=== PATIENT | female | born 1960 | race Caucasian/White ===

== ENCOUNTER → 2016-05-27 | Outpatient (CLI) | payer BC ==
[~2016-05-27] MED LIST: CHOL1CAP51 PO; MULTTAB58 PO; SERT-234 PO
--- NOTE | 2016-05-27 15:35 | MAMMOGRAPHY REPORT ---
BILATERAL DIGITAL SCREENING MAMMOGRAM TOMOSYNTHESIS WITH CAD: 05/27/2016 CLINICAL HISTORY: Routine screening. Patient has no complaints. TECHNIQUE: Breast tomosynthesis in addition to standard 2D mammography was performed. Current study was also evaluated with a Computer Aided Detection (CAD) system. COMPARISON: Comparison is made to exams dated: 03/28/2015 mammogram, 03/21/2014 mammogram, 02/29/20 14 mammogram, 02/14/2013 mammogram, 12/28/2011 mammogram, and 11/18/2010 mammogram - [facility]. BREAST COMPOSITION: The tissue of both breasts is extremely dense, which lowers the sensitivity of mammography. FINDINGS: No suspicious masses, calcifications, or areas of architectural distortion are noted in e ither breast. There has been no significant interval change compared to prior exams. Bilateral hemal gn-appearing calcifications are not significantly changed. IMPRESSION: ACR BI-RADS CATEGORY 2: BENIGN There is no mammographic evidence of malignancy. A 1 year screening mammogram is recommended. The p atient will receive written notification of the results. Approximately 10% of breast cancers are not detected with mammography. A negative mammographic repor t should not delay biopsy if a clinically suggestive mass is present. Ashwini Zazueta M.D. /:05/27/2016 15:23:55 Veterinary Receptionist: Shawnee GUILLEN)(Estela)(BD), [facility] letter sent: Normal 1/2 BI-RADS Code: ACR BI-RADS Category 2: Benign
== END | disposition home or self-care (01) ==
LOC: C.MAMM 12:15
PROVIDERS: ATTEND Obstetrics & Gynecology
DX: Z12.31 Encounter for screening mammogram for malignant neoplasm of breast (principal)

== ENCOUNTER → 2016-06-09 | Outpatient (CLI) | payer BC | END | disposition home or self-care (01) | LOC: C.PAPS 14:20 | PROVIDERS: ATTEND Obstetrics & Gynecology | DX: Z01.419 Encounter for gynecological examination (general) (routine) without abnormal findings (principal) ==

== ENCOUNTER → 2016-07-29 | Outpatient (CLI) | payer BC ==
--- NOTE | 2016-07-29 09:51 | DIAGNOSTIC IMAGING REPORT ---
RIGHT RIBS UNILATERAL WITH PA CHEST CLINICAL HISTORY: RIGHT RIB PAIN Right COMPARISON STUDY: Chest 12/25/2014. FINDINGS: The lungs are clear. The heart is normal in size. No pleural effusions. No pneumothorax. No acute rib fractures. Stable distal resorption/resection of the right clavicle. IMPRESSION: No acute rib fractures. No pneumothorax. Electronically signed by: Dung Matt M.D. 07/29/2016 9:50 AM Dictated Date/Time: 07/29/2016 9:40 AM
== END | disposition home or self-care (01) ==
LOC: C.RAD1850 09:09
PROVIDERS: ATTEND Family Medicine
DX: R22.2 Localized swelling, mass and lump, trunk (principal)

== ENCOUNTER → 2016-08-05 | Outpatient (CLI) | payer BC ==
--- NOTE | 2016-08-05 13:37 | DIAGNOSTIC IMAGING REPORT ---
CHEST ULTRASONOGRAPHY CLINICAL HISTORY: Chest wall mass COMPARISON STUDY: No previous studies for comparison. FINDINGS: No pathologic masses are visualized. The palpable abnormality appears to correlate with costochondral cartilage. Clinical follow-up is advocated. If a clinically suspicious abnormality is repalpated, additional imaging such as a CT scan could be obtained. IMPRESSION: No pathologic masses are visualized ultrasonographically. Electronically signed by: Israel Hardin M.D. 08/05/2016 1:36 PM Dictated Date/Time: 08/05/2016 1:35 PM
== END | disposition home or self-care (01) ==
LOC: C.ULTR 13:06
PROVIDERS: ATTEND Family Medicine
DX: R22.2 Localized swelling, mass and lump, trunk (principal)

== ENCOUNTER → 2017-05-31 | Outpatient (CLI) | payer BC ==
--- NOTE | 2017-06-01 15:41 | MAMMOGRAPHY REPORT ---
BILATERAL DIGITAL SCREENING MAMMOGRAM TOMOSYNTHESIS WITH CAD: 05/31/2017 CLINICAL HISTORY: Routine screening. TECHNIQUE: Breast tomosynthesis in addition to standard 2D mammography was performed. Current study was also evaluated with a Computer Aided Detection (CAD) system. COMPARISON: Comparison is made to exams dated: 05/27/2016 mammogram, 03/28/2015 mammogram, 02/28/2014 mammogram, 02/14/2013 mammogram, 12/28/2011 mammogram, and 11/18/2010 mammogram - [facility]. BREAST COMPOSITION: The tissue of both breasts is extremely dense, which lowers the sensitivity of m ammography. FINDINGS: The parenchymal pattern is unchanged. No developing mass, architectural distortion or clus ter of suspicious microcalcifications is seen in either breast. IMPRESSION: ACR BI-RADS CATEGORY 2: BENIGN There is no mammographic evidence of malignancy. A 1 year screening mammogram is recommended. The pa tient will receive written notification of the results. Approximately 10% of breast cancers are not detected with mammography. A negative mammographic report should not delay biopsy if a clinically suggestive mass is present. Melodie Frye M.D. ay/:05/31/2017 16:18:49 [place] Burner Operator: Shwetha DAMICO(R)(M), [facility] letter sent: Normal 1/2 BI-RADS Code: ACR BI-RADS Category 2: Benign
== END | disposition home or self-care (01) ==
LOC: C.MAMM 12:05
PROVIDERS: ATTEND Obstetrics & Gynecology
DX: Z12.31 Encounter for screening mammogram for malignant neoplasm of breast (principal)

== ENCOUNTER → 2017-06-23 | Outpatient (CLI) | payer BC | END | disposition home or self-care (01) | LOC: C.PAPS 14:13 | PROVIDERS: ATTEND Obstetrics & Gynecology | DX: Z01.419 Encounter for gynecological examination (general) (routine) without abnormal findings (principal) ==

== ENCOUNTER 2019-02-06 06:10 | Inpatient (IN) ==
--- NOTE | 2019-01-30 13:08 | Anesthesiology Consultation ---
Date of Service January 30, 2019 History Surgery Operation Date: 02/06/19 13:10 Proposed Procedures p Robotic Laparoscopic Excision of Perinephric Retroperitoneal Mass, - Salomón Frye MD s Cystoscopy, Right Ureteral Stent - Salomón Frye MD Height/Weight Height: 5 ft 3 in Weight: 46.72 kg Allergies Allergy/AdvReac Type Severity Reaction Status Date / Time epinephrine Allergy Unknown "heart Verified 01/30/19 13:08 goes really crazy" tetanus toxoid, adsorbed Allergy Unknown swelling Verified 01/30/19 13:08 at injection site diphenhydramine AdvReac Unknown heart Verified 01/30/19 13:08 racing Medications Home Medications Medication Instructions Recorded Confirmed Last Taken clonazepam [Klonopin] 0.5 mg PO UD PRN 01/30/19 01/30/19 Unknown multivitamin 1 tab PO QAM 01/30/19 01/30/19 Unknown sertraline [Zoloft] 100 mg PO QAM 01/30/19 01/30/19 Unknown Past Medical History Medical History Anxiety Heart palpitations saw Dr. Jameson several years ago for workup. reports diagnosed with some type cardiac abnormality but told not a cause for concern and did not need to continue to follow w/ cardio -- unable to recall specific dx. Hydronephrosis IBS (irritable bowel syndrome) Osteopenia Retroperitoneal mass Temporomandibular joint click Past Surgical History Surgical History H/O arthroscopy of shoulder Rt Status post lateral meniscus repair Rt History of anesthesia reaction Tachycardia History of biopsy Retroperitoneal mass - benign History of colonoscopy History of dacryocystorhinostomy BL History of esophagogastroduodenoscopy (EGD) History of tooth extraction Social History Smoking Status: Never smoker Do You Dip or Chew Tobacco: No Hx Alcohol Use: Yes Alcohol type: wine alcohol intake frequency: a few times a month Hx Substance Use: No substance use type: does not use
--- NOTE | 2019-01-30 13:10 | PAT Medication Instructions ---
Medication Instructions Date of Service January 30, 2019 Home Medications clonazepam [Klonopin] 0.5 mg PO UD PRN multivitamin 1 tab PO QAM sertraline [Zoloft] 100 mg PO QAM DO NOT take the morning of surgery multivitamin 1 tab PO QAM Take morning of surgery With a small sip of water, OTHERWISE NOTHING TO EAT OR DRINK AFTER MIDNIGHT: clonazepam [Klonopin] 0.5 mg PO UD PRN (if needed) sertraline [Zoloft] 100 mg PO QAM Other Notes If you have any questions please call us at [phone] or [phone] or [phone] or [phone]
--- NOTE | 2019-01-31 08:49 | Anesthesiology Consultation ---
Date of Service January 31, 2019 Assessment & Plan (1) Encounter for pre-operative examination: - Cardiac hx: Past anesthesia reaction and preop EKG reviewed with Dr. Mercado. He does not feel EKG significantly changed from prior 2013 [facility] EKG and that no further cardiac evaluation/testing needed prior to surgery from his perspective. - Past anesthesia/surgery reaction: Patient reports tachycardia perioperatively with multiple surgeries. Most recent surgery: right knee scope: 07/09/14 at [facility]-- LMA#4. No perioperative tachycardia but: Was called to PACU for pt unresponsive with decreased respirations and SaO2 88%. Pt had been somnolent with oral airway in place on arrival to PACU. Provided assisted respirations with BVM 100% O2 without difficulty. SaO2 improved and pt subsequently awakened. Oral airway was removed and had no further respiratory difficulty. Later during PACU stay, pt developed SVT with heart rate 140/min. Was fully awake and responsive at that time, pain-free, with normal blood pressure. Metoprolol 2.5mg was given with satisfactory fall in heart rate to 80's. No further problems ensued and pt was discharged in satisfactory condition." Chart Review Chart Review: Pending: Refer to Additional Notes / Consult section (pending preop testing (labs, EKG, CXR)) and Patient seen in Pre Admission Testing Teaching & Discussion Pre-Anesthesia Teaching/Discussion Notes: Instructed NPO after midnight before surgery,except medications with 15 cc of water. Medication instructions provided according to the PAT guidelines. History Surgery Operation Date: 02/06/19 13:10 Proposed Procedures p Robotic Laparoscopic Excision of Perinephric Retroperitoneal Mass, - Salomón Frye MD s Cystoscopy, Right Ureteral Stent - Salomón Frye MD Height/Weight Height: 5 ft 3 in Weight: 47.3 kg Allergies Allergy/AdvReac Type Severity Reaction Status Date / Time epinephrine Allergy Unknown "heart Verified 01/30/19 13:08 goes really crazy" tetanus toxoid, adsorbed Allergy Unknown swelling Verified 01/30/19 13:08 at injection site diphenhydramine AdvReac Unknown heart Verified 01/30/19 13:08 racing Medications Home Medications Medication Instructions Recorded Confirmed Last Taken clonazepam [Klonopin] 0.5 mg PO UD PRN 01/30/19 01/30/19 Unknown multivitamin 1 tab PO QAM 01/30/19 01/30/19 Unknown sertraline [Zoloft] 100 mg PO QAM 01/30/19 01/30/19 Unknown Past Medical History Medical History Anxiety Heart palpitations hx SVT per records; patient s/p cardiac evaluation/workup "several years ago" and told "not a cause for concern and did not need to continue to follow w/ cardio" Hydronephrosis IBS (irritable bowel syndrome) Osteopenia Retroperitoneal mass Temporomandibular joint click Exercise / Class Metabolic Activity II 4-5 Yardwork/Stairs/Walk up hill Past Surgical History Surgical History H/O arthroscopy of shoulder Rt Status post lateral meniscus repair Rt History of biopsy Retroperitoneal mass - benign History of colonoscopy History of dacryocystorhinostomy BL History of esophagogastroduodenoscopy (EGD) History of tooth extraction Past Anesthesia History No Family Hx of Anesthesia Complications and Other Patient reports tachycardia perioperatively with multiple surgeries. Most recent surgery: right knee scope: 07/09/14 at [facility]-- LMA#4. No perioperative tachycardia but: Was called to PACU for pt unresponsive with decreased respirations and SaO2 88%. Pt had been somnolent with oral airway in place on arrival to PACU. Provided assisted respirations with BVM 100% O2 without difficulty. SaO2 improved and pt subsequently awakened. Oral airway was removed and had no further respiratory difficulty. Later during PACU stay, pt developed SVT with heart rate 140/min. Was fully awake and responsive at that time, pain-free, with normal blood pressure. Metoprolol 2.5mg was given with satisfactory fall in heart rate to 80's. No further problems ensued and pt was discharged in satisfactory condition." History of PONV No Hx of PONV and No Hx of Motion Sickness Social History Smoking Status: Never smoker Do You Dip or Chew Tobacco: No Hx Alcohol Use: Yes Alcohol type: wine alcohol intake frequency: a few times a month Hx Substance Use: No substance use type: does not use Review of Systems Patient denies chest pain, shortness of breath, reflux, cough, wheezing, palpitations. Physical Exam Vital Signs VITALS BP 107/70 P 72 TEMP 97.6 SP02 100%RA RESP 16 PHYSICAL Full neck and c-spine range of motion. Full TMJ range of motion. TMD 3.5 finger breaths Mallampati Score 2 Dentition: missing side, crowns on sides Lungs: clear throughout to auscultation Cardiac: regular rate and rhythm, no murmurs noted Spine: normal Carotid arteries: negative bruit Extremities: no edema Testing Laboratory Results 01/10/19 PT 10.6 PTT 29.2 INR 1.0
--- NOTE | 2019-01-31 10:15 | XRay Report ---
TWO VIEW CHEST CLINICAL HISTORY: Preoperative examination. FINDINGS: PA and lateral chest radiographs are compared to study dated 07/29/2016. The cardiomediastin al silhouette is unremarkable. The lungs and pleural spaces are clear. Apical scarring is noted. The re is no pneumothorax. The bony thorax appears intact. IMPRESSION: No active disease in the chest. Electronically signed by: Magnus Dennis M.D. 01/31/2019 10:14 AM
[2019-01-31 12:15] LABS: Basophils # (auto) 0.02 K/uL (0-0.2); Basophils % (auto) 0.3 %; Eosinophils # (auto) 0.09 K/uL (0-0.5); Eosinophils % (auto) 1.3 %; Hematocrit (blood only) 38.2 % (37-47); Hemoglobin 12.6 g/dL (12.0-16.0); Immature Granulocytes # (auto) 0.01 K/uL (0.00-0.02); Immature Granulocytes % (auto) 0.1 %; Lymphocytes # (auto) 1.47 K/uL (1.2-3.4); Lymphocytes % (auto) 20.4 %; Mean Corpuscular Hemoglobin 29.7 pg (25-34); Mean Corpuscular Volume 90.1 fL (80-100); Mean Platelet Volume 9.5 fL (7.4-10.4); Monocytes # (auto) 0.65 K/uL (0.11-0.59); Neutrophils # (auto) 4.95 K/uL (1.4-6.5); Neutrophils % (auto) 68.9 %; Platelet Count 288 K/uL (130-400); RDW Coefficient of Variation 12.7 % (11.5-14.5); RDW Standard Deviation 41.7 fL (36.4-46.3); Red Blood Count 4.24 M/uL (4.2-5.4); White Blood Count 7.19 K/uL (4.8-10.8)
[2019-01-31 12:24] LABS: BUN Creatinine Ratio 16.4 (10-20); Calcium 9.4 mg/dl (8.5-10.1); Creatinine Clr Calc Pharmacy 48.4 ml/min; Est GFR (African American) 75.7; Est GFR (Non-African American) 65.3; Potassium 3.8 mmol/L (3.5-5.1)
[2019-01-31 12:38] LABS: Appearance Urine Cloudy (Clear); Bacteria Urine Automated Negative (Negative); Bilirubin Urine Negative (Negative); Blood Urine Trace (Negative); Color Urine Yellow; Glucose Urine UA Negative (Negative); Ketones Urine Negative (Negative); Leukocyte Esterase Urine Trace (Negative); Nitrite Urine Negative (Negative); Protein Urine Negative (Negative); Specific Gravity Urine 1.023 (1.000-1.030); Urobilinogen Urine Negative (Negative); pH Urine 7.5 (4.5-7.5)
[~2019-02-06 06:10] MED LIST changes: +CEFAZOLIN 2000MG 2,000 MG/15 ML SYR IV SCH; -CHOL1CAP51 PO; +HEPARIN SOD 5,000 UNIT/0.5 ML VIAL SQ SCH; +LR 15ML/HR IV SCH; -MULTTAB58 PO; -SERT-234 PO
[2019-02-06] MEDS ORDERED: SCOPOLAMINE 1.5 MG TDSY TD ONE ×2 (07:01→07:06)
[2019-02-06] MEDS ORDERED: ePHEDrine sulfate 50 MG/ML AMP IV PRN (07:01)
[2019-02-06] MEDS ORDERED: fentaNYL citrate 100 MCG/2 ML VIAL IV PRN (07:01)
[2019-02-06] MEDS ORDERED: SCOPOLAMINE 1.5 MG TDSY ONE (07:01)
[2019-02-06] MEDS ORDERED: ATROPINE SULFATE 0.1 MG/ML 10ML SYR IV PRN (07:01)
[2019-02-06] MEDS ORDERED: ONDANSETRON INJ 2 MG/ML 2 ML VIAL IV PRN ×2 (07:01→13:36)
[2019-02-06] MEDS ORDERED: BUPIVACAINE 0.5 % 5 MG/1 ML MPF 30ML VIAL ONE (07:11)
[2019-02-06] MEDS ORDERED: MIDAZOLAM HCL 1 MG/ML 2ML VIAL ONE (07:15)
[2019-02-06] MEDS ORDERED: fentaNYL citrate 100 MCG/2 ML VIAL ONE (07:15)
--- NOTE | 2019-02-06 07:24 | History & Physical Bridge Note ---
Date of Service February 06, 2019 History & Physical Bridge Note I have examined the patient, reviewed the History & Physical and in the interval since the performance of the History & Physical I have noted the following changes of clinical significance: no changes noted
[2019-02-06] MEDS ORDERED: CHECK SCOPOLAMINE PATCH PLACEMENT SCH (08:00)
[2019-02-06] MEDS ORDERED: NEOSTIGMINE METHYLSULFATE 5 MG/5 ML SYR ONE (08:20)
[2019-02-06] MEDS ORDERED: ONDANSETRON INJ 2 MG/ML 2 ML VIAL ONE ×2 (08:20→08:54)
[2019-02-06] MEDS ORDERED: LIDOCAINE HCL 2% 2 ML VIAL/AMP(20MG/ML) INFIL ONE (08:20)
[2019-02-06] MEDS ORDERED: ePHEDrine sulfate 50 MG/ML SYR ONE (08:20)
[2019-02-06] MEDS ORDERED: DEXAMETHASONE SOD INJ 4 MG/ML VIAL ONE (08:20)
[2019-02-06] MEDS ORDERED: GLYCOPYRROLATE 0.2 MG/ML VIAL ONE (08:20)
[2019-02-06] MEDS ORDERED: PROPOFOL IV EMULSION 10 MG/ML 20 ML VIAL IV ONE (08:20)
[2019-02-06] MEDS ORDERED: ROCURONIUM BROMIDE 10 MG/ML 5 ML VIAL ONE ×2 (08:20→10:46)
[2019-02-06] MEDS ORDERED: HYDROmorphone INJ 2 MG/ML SYR/VIAL ONE (08:52)
[2019-02-06] MEDS ORDERED: FLOSEAL HEMOSTATIC MATRIX 10ML TOP ONE (10:40)
[2019-02-06] MEDS ORDERED: PHENYLEPHRINE 100MCG/ML 5ML SYR ONE (10:49)
--- NOTE | 2019-02-06 11:04 | Operative Report ---
PG Post Operative Report Pre & Post Diagnosis Operation Date: 02/06/19 09:20 Pre-Op Diagnosis: Right Leiomyoma Post-Op Diagnosis: Right Leiomyoma Procedure Operation Date: 02/06/19 09:20 Actual Procedures p Attempted Robotic Laparoscopic Excision of Right Perinephric Retroperitoneal Mass,(Right) - Salomón Frye MD s Cystoscopy, Right Ureteral Stent(Right) - Salomón Frye MD extended right hemicolectomy-Farooq Lord D.O. Surgeon Farooq Lord, DO Chaparro Frye M.D. Casting Machine Control Board Operator Johnnie Taylor pa-c Estimated Blood Loss 25 Findings Consistent with Post-Op Diagnosis Specimens terminal ileum,cecum,right colon,portion of transverse colon Description of Procedure Please see Dr. Frye's operative note for a full report. I was called into the room mid procedure. The patient was placed in a slightly left lateral decubitus position with a laparotomy incision already performed and Bookwalter had been placed. The right ureter, portion of kidney and portion of right colon was already mobilized. There was concern about the mass extending into the mesentery of the right colon. At this point I scrubbed into the case. The final pathology of the mass is in question with concern for possibly having a component of sarcoma. We attempted to dissect the kidney off of the mesentery of the right colon but at the same time wanted to obtain adequate margins. We continued use traction countertraction, small amounts of cautery, as well as clamp cut and tie to take down the blood supply to the mass and kidney. We were able to bluntly dissect the duodenum away from the mass. We tediously continued to dissect around the entire right kidney until we had it fully excised. After we passed this off to be sent to pathology it was obvious that we had made a rent in a several inch portion of the right mesentery. Because of this as well as the consideration of possible erosion of the mass into the mesentery of the right colon I made the decision to perform a right hemicolectomy. The patient had already been bowel prepped preoperatively. There was some mild ischemia to the cecum as well which concerned me as well as obtaining adequate margins. At this point we transected the terminal ileum using a SALVADOR brown cartridge linear stapler. We then made a small window in the mesentery of the transverse colon just proximal to the middle colic vessels and transected this using a brown cartridge stapler as well. The mesentery was primarily already freed up as was the hepatic flexure. We used a LigaSure device to take down the mesentery of the cecum right colon and portion of transverse colon. We sent the entire specimen off to be sent to pathology. We then performed a side to side ileotransverse anastomosis again with a brown cartridge SALVADOR stapler. The common enterotomy was closed using a TA 60 stapling device. 3-[address] a crotch stitch. I used 2-0 Vicryl to close the mesenteric defect. The anastomosis was widely patent pink and viable. We thoroughly irrigated the wound. There was adequate hemostasis. Please see Dr. Frye's report for the closure. At this point I scrubbed out of the case. I attest to the content of the Intraoperative Record and any orders documented therein. Any exceptions are noted below.
[2019-02-06] MEDS ORDERED: NALOXONE HCL 0.4 MG/1 ML VIAL/CARP ONE (11:38)
[2019-02-06 11:58] LABS: Basophils # (auto) 0.01 K/uL (0-0.2); Basophils % (auto) 0.1 %; Hematocrit (blood only) 36.3 % (37-47); Hemoglobin 12.1 g/dL (12.0-16.0); Immature Granulocytes # (auto) 0.02 K/uL (0.00-0.02); Immature Granulocytes % (auto) 0.1 %; Lymphocytes # (auto) 0.91 K/uL (1.2-3.4); Lymphocytes % (auto) 6.5 %; Mean Corpuscular Hemoglobin 30.3 pg (25-34); Mean Corpuscular Volume 90.8 fL (80-100); Mean Platelet Volume 8.8 fL (7.4-10.4); Monocytes # (auto) 0.19 K/uL (0.11-0.59); Monocytes % (auto) 1.4 %; Neutrophils # (auto) 12.88 K/uL (1.4-6.5); Neutrophils % (auto) 91.9 %; Platelet Count 270 K/uL (130-400); RDW Coefficient of Variation 12.3 % (11.5-14.5); RDW Standard Deviation 40.9 fL (36.4-46.3); White Blood Count 14.01 K/uL (4.8-10.8)
[2019-02-06 12:03] LABS: Mean Corpuscular Hgb Conc 33.3 g/dL (32-36)
--- NOTE | 2019-02-06 12:08 | Operative Report ---
PG Post Operative Report Pre & Post Diagnosis Operation Date: 02/06/19 09:20 Pre-Op Diagnosis: Right Leiomyoma Post-Op Diagnosis: Right Leiomyoma Procedure Operation Date: 02/06/19 09:20 Actual Procedures p Diagnostic Laparoscopy Excision of Retroperitoneal Mass,Partial colectomy,with appendectomy(Right) - Salomón Frye MD s Cystoscopy, Right Ureteral Stent(Right) - Salomón Frye MD Surgeon Chaparro Frye MD Backhoe Operator Johnnie Taylor pa-c Estimated Blood Loss 200 Findings Consistent with Post-Op Diagnosis Specimens 1. Retroperitoneal mass5 cores for frozen analysisinterpreted as leiomyoma with atypia, cannot rule out sarcoma 2. Retroperitoneal mass 3. Right colon with appendix and terminal ileum Description of Procedure Of note, this is a healthy 58-year-old female with a recently discovered right retroperitoneal mass. FNA and core biopsies were previously performed with interpretation of the mass as leiomyoma with some atypia. Insufficient abnormalities to justify diagnosis of sarcoma however this certainly remains the primary item on the differential. With these risks in mind, we approach the velázquez rgery with the anticipation of treating it as a sarcoma in the area on the side of caution in regard to margins and resection of adjacent structures. Description of the case: The patient was identified in the preoperative holding area, appropriate informed consents reviewed and completed and the patient was transported to the operating suite. Upon arrival she received appropriate preoperative antibiotics in the form of Ancef. To begin the case, she was placed in dorsal lithotomy position and sterilely prepped and draped in standard fashion. I began by passing a 22 Israeli cystoscope with 30 degree lens. Inspection revealed a slightly tight urethral meatus which was dilated with the scope and obturator. Inspection of the bladder revealed no mucosal abnormalities. Right and left ureteral orifices were in orthotopic position. I turned my attention to the right ureteral orifice and cannulated with a sensor wire and a 5 Israeli open- ended catheter. Both advanced to the level of the kidney without difficulty. I then withdrew the 5 Israeli open-ended catheter and placed a 6 x 24 cm double-J ureteral stent leaving a string attached to the distal end. Seeing a good curl in the bladder, I concluded this portion of the case and placed a Del Valle catheter. The string was attached to the catheter in the patient is undraped. She was subsequently placed in the left side down right side up lazy lateral position with the bed slightly flexed. She underwent sterile prep and drape standard fashion. To begin the abdominal portion of the case, a Veress needle was passed per umbilicus and abdomen insufflated to 15 mmHg. An infraumbilical port was placed with a 12 mm Visiport and 10 mm 0 degree lens. Inspection revealed no adhesions. There is no veress trauma. Initial inspection revealed a very large mass in the right lateral aspect of the abdomen. Initial inspection limited believe that we could perform this as a laparoscopic surgery, I placed 2 additional ports in anticipation of this. By Dr. gerri rodriguez and attempted to look with a 30 degree lens over the top of the mass. Unfortunately, her colon, as depicted and imaging was draped in the extreme lateral side of this mass and this mass was protruding essentially from her posterior aspect of her abdomen to her anterior. It created an obstruction which I did not feel safe working around. I attempted to re-work the ports to see if I could achieve a better angle, but her small stature in size clearly made laparoscopy inferior to an open surgery in my opinion. I subsequently undocked the robot withdrew the laparoscopic ports and made a Escamilla style incision over top of the mass in the right lower quadrant. Carried this dissection through the superficial musculature until I entered the peritoneum. At that time the mass was readily visible with the colon draped over top including the mesentery and some omentum. A Bookwalter retractor was placed and I incised the white line of Toldt sharply utilizing Metzenbaum scissors. I attempted to flip the colon medially but it became clear that portion of the mesentery was adherent to the anterior surface of the mass. The lateral portion of the mass was visible and I was able to trace this posteriorly until I could identify the psoas muscle and determined that the mass was not arising from the psoas muscle itself. The ureter was not yet visible but I was not yet able to palpate the ureteral stent. Genitofemoral nerve was visualized as was the psoas tendon. The inferior pole of the kidney was visualized and I was able to dissect the mass away from the lower pole of the kidney. Continue to work behind the posterior aspect of the mass from lateral to medial and I palpated the ureteral stent and ureter adhering to the backside of the mass. This was essentially traveling through groove in the mass. I could identify healthy ureter superior and inferior to the mass and utilizing a right angle and Bovie cautery we carefully dissected the ureter away from the mass. A vessel loop was placed around the ureter to assist in lateral retraction. No violation of the mass during this dissection and there was a healthy-appearing ureter with deborah ropriately positioned ureteral stent easily palpated. I continued to dissect posteriorly after freeing the ureter. Inferiorly I could identify the appendix and cecum. Superiorly I can identify the duodenum and the transverse colon/hepatic flexure. I dissected around these areas to the maximal extent possible. Anteriorly there was a plane visible between the mesentery and the mass, however it was quite adherent. Before dissecting further through this plane, I consulted general surgery to weigh their opinion. We previously discussed possible colon resection with the mass if there was adherence in this location. Dr. Abhishek Lord joined me at that time and assisted with the dissection. We continued to dissect the plane between the the mass and the right colon/mesentery until the mass was entirely freed. The gonadal vessels were sacrificed in the midst of dissecting the mass as they appear to be protruding into the mass and I could not definitively rule out the gonadal vein as the initial source of the mass. We controlled them superiorly and inferiorly with clips and suture ligation. Several clips were placed at the superior aspect of the mass for future marking in the case that we would require radiation therapy in an adjuvant setting. The lower aspect of the mass protruded down to the external iliac artery and vein. There is no adherence or involvement of the IVC or aorta. We were able to skeletonize the structures and visualized them without difficulty. There was a question of several small lymph nodes along the anterior surface of the mass. These were included with the specimen. After circumferentially dissecting around the mass, the mass was removed without violation. We then turned attention back to the right colon which thus far was left intact. The mesentery had been thinned during this dissection given the close adherence of the mass to the mesentery we elected to remove the right colon including appendix. Dr. Lord performed the excision and re-anastomosis of terminal ileum to the upper aspect of the right colon/transverse colon. Details of that portion of the procedure are as dictated in his intraoperative consultation. At that time there was a very viable appearing anastomosis and bowel omentum was draped back over her surgical field. The ureter was inspected and felt to be healthy with the stent in place. There is excellent hemostasis, however I did additionally place some FloSeal coagulant into the deepest portion of our dissection. We then concluded the intra-abdominal portion of the case and began closure. Initially closed peritoneum with a 2-0 Vicryl followed by closure of the internal and external oblique fasciae using 0 Vicryl. Half percent Marcaine was infiltrated into all wounds. The initial laparoscopic ports had their fascia closed with a 0 Vicryl. All skin incisions were closed with 4-0 Monocryl. She was subsequently extubated and taken to the PACU in stable condition. Pamela HOLMAN assisted throughout the surgery Dr. Abhishek Lord performed an intra-operative consutlation and served as a co- surgeon - leading the bowel resection. I attest to the content of the Intraoperative Record and any orders documented therein. Any exceptions are noted below.
[2019-02-06 12:15] LABS: BUN Creatinine Ratio 16.6 (10-20); Calcium 8.3 mg/dl (8.5-10.1); Creatinine Clr Calc Pharmacy 52.3 ml/min; Est GFR (African American) 85.1; Est GFR (Non-African American) 73.4
--- NOTE | 2019-02-06 12:36 | Anesthesiology Progress Note ---
Date of Service February 06, 2019 Anesthesia Post Procedure Vital Signs Vital Signs: Temp Pulse Pulse Pulse Resp BP BP 02/06/19 12:30 94 H 14 133/72 02/06/19 12:20 123 H 12 02/06/19 12:15 129 H 17 115/78 02/06/19 12:10 86 17 02/06/19 12:05 88 14 127/63 02/06/19 12:00 84 15 124/63 02/06/19 11:55 82 14 120/65 02/06/19 11:50 80 21 121/61 02/06/19 11:45 75 16 122/61 02/06/19 11:40 73 10 L 109/55 L 02/06/19 11:35 88 20 107/57 L 02/06/19 11:30 70 2 L 111/53 L 02/06/19 11:28 97.5 F L 70 92 H 0 L 116/58 L 02/06/19 06:36 98.1 F 81 18 123/70 BP Pulse Ox 02/06/19 12:30 99 02/06/19 12:20 100 02/06/19 12:15 100 02/06/19 12:10 96 02/06/19 12:05 96 02/06/19 12:00 96 02/06/19 11:55 96 02/06/19 11:50 98 02/06/19 11:45 99 02/06/19 11:40 99 02/06/19 11:35 70 L 02/06/19 11:30 96 02/06/19 11:28 116/58 L 99 02/06/19 06:36 99 Pain Intensity Abdomen: Pain Intensity: 0 Transfer of Care Handoff Completed per policy Notes Mental Status: alert / awake / arousable and participated in evaluation Patient Amnestic to Procedure: Yes Nausea / Vomiting: adequately controlled Pain: adequately controlled Airway Patency, RR, SpO2: stable & adequate BP & HR: stable & adequate Hydration State: stable & adequate Anesthetic Complications: no major complications apparent and Pt Satisfied with anesthetic care
--- NOTE | 2019-02-06 13:28 | XRay Report ---
KUB HISTORY: Ureteral stent placement COMPARISON: Abdomen and pelvis CT 01/10/2019. FINDINGS: The bowel gas pattern is unremarkable. There are no dilated loops of small bowel to suggest an obstruction. Interval placement of a right ureteral stent. The proximal loop is located at the d ilated right renal pelvis/ureteropelvic junction. Surgical clips within the right side the abdomen. T he distal stent terminates along the left side of the bladder. There is gas within the bladder lumen. No renal or ureteral calculi. No pneumoperitoneum or pneumatosis. IMPRESSION: Borderline low lying right ureteral stent with the proximal loop located at the dilated right renal p vijay/ureteropelvic junction and the distal stent terminating within the left side of the bladder. Electronically signed by: Dung Matt M.D. 02/06/2019 1:27 PM
[2019-02-06] MEDS ORDERED: MoRPHine SULFATE 4 MG/ML 1 ML CARP\\VIAL IV PRN ×2 (13:36→14:15)
[2019-02-06] MEDS ORDERED: clonazePAM 0.5 MG TAB PO PRN (13:36)
[2019-02-06] MEDS ORDERED: ACETAMINOPHEN 1,000 MG/100 ML VIAL IV PRN (13:36)
[2019-02-06] MEDS ORDERED: MoRPHine SULFATE 2 MG/ML CARP IV PRN (14:35)
[2019-02-06] MEDS: LACTATED RINGER'S 1,000 ML IV SCH ×2 (14:37→22:47)
[2019-02-06] MEDS: CHECK SCOPOLAMINE PATCH PLACEMENT SCH ×2 (16:16→22:56)
[2019-02-06] MEDS: CEFAZOLIN 2000MG 2,000 MG/15 ML SYR IV SCH ×2 (16:16→22:56)
[2019-02-06] MEDS: MoRPHine SULFATE 2 MG/ML CARP IV PRN ×2 (19:40→22:56)
[2019-02-06] MEDS: DOCUSATE SODIUM 100 MG CAP PO SCH (20:28)
[2019-02-06] MEDS: FAMOTIDINE 20 MG in SYRINGE 3 ML IV SCH (20:28)
[2019-02-06] MEDS: HEPARIN SOD 5,000 UNIT/0.5 ML VIAL SQ SCH (20:31)
[2019-02-07] MEDS: MoRPHine SULFATE 2 MG/ML CARP IV PRN ×2 (02:08→07:18)
[2019-02-07] MEDS: LACTATED RINGER'S 1,000 ML IV SCH ×3 (05:44→21:40)
[2019-02-07 06:02] LABS: Basophils # (auto) 0.01 K/uL (0-0.2); Basophils % (auto) 0.1 %; Eosinophils # (auto) 0.01 K/uL (0-0.5); Eosinophils % (auto) 0.1 %; Hematocrit (blood only) 28.9 % (37-47); Hemoglobin 9.4 g/dL (12.0-16.0); Immature Granulocytes # (auto) 0.02 K/uL (0.00-0.02); Immature Granulocytes % (auto) 0.2 %; Lymphocytes # (auto) 1.39 K/uL (1.2-3.4); Lymphocytes % (auto) 13.4 %; Mean Corpuscular Hemoglobin 29.3 pg (25-34); Mean Corpuscular Hgb Conc 32.5 g/dL (32-36); Mean Platelet Volume 8.9 fL (7.4-10.4); Monocytes # (auto) 0.74 K/uL (0.11-0.59); Monocytes % (auto) 7.1 %; Neutrophils # (auto) 8.21 K/uL (1.4-6.5); Neutrophils % (auto) 79.1 %; Platelet Count 223 K/uL (130-400); RDW Coefficient of Variation 12.6 % (11.5-14.5); RDW Standard Deviation 41.4 fL (36.4-46.3); Red Blood Count 3.21 M/uL (4.2-5.4); White Blood Count 10.38 K/uL (4.8-10.8)
[2019-02-07 06:51] LABS: BUN Creatinine Ratio 13.4 (10-20); Calcium 7.9 mg/dl (8.5-10.1); Creatinine Clr Calc Pharmacy 56.1 ml/min; Est GFR (African American) 92.7; Potassium 3.7 mmol/L (3.5-5.1)
[2019-02-07] MEDS: FAMOTIDINE 20 MG in SYRINGE 3 ML IV SCH ×2 (08:49→20:26)
[2019-02-07] MEDS: MULTIVITAMIN TAB PO SCH (08:50)
[2019-02-07] MEDS: SERTRALINE HCL 100 MG TABLET PO SCH (08:50)
[2019-02-07] MEDS: DOCUSATE SODIUM 100 MG CAP PO SCH ×2 (08:50→20:26)
[2019-02-07] MEDS: CHECK SCOPOLAMINE PATCH PLACEMENT SCH (08:51)
[2019-02-07] MEDS: CEFAZOLIN 2000MG 2,000 MG/15 ML SYR IV SCH (08:54)
--- NOTE | 2019-02-07 09:09 | Urology Progress Note ---
Date of Service February 07, 2019 Assessment & Plan (1) Retroperitoneal mass: Postop day #1 status post right colectomy and excision of retroperitoneal mass Plan for Del Valle removal and stent removal today Ambulation Gradual diet advancegeneral surgery will likely weigh in on this Pain control Labs appropriate Subjective Recovering appropriately thus far from her recent open retroperitoneal mass excision and partial colectomy Minimal nausea yesterday which has subsided overnight Pain is present but tolerable Catheter still in place Physical Exam Physical Exam: Incisions appropriate, no erythema, appropriately tender Results & Data Vital Signs (Past 12 Hours) Vital Signs Temp Pulse Resp BP Pulse Ox 02/07/19 07:41 37.0 C 83 16 119/59 L 95 02/07/19 03:05 37.1 C 88 16 102/53 L 95 02/06/19 23:20 36.9 C 90 16 111/61 95 PG Care Time/CCT Total # of Minutes Spent Total Time Spent with Patient: Total time spent is greater than 50% in coordination of care (as documented) at patient's floor/unit and/or counseling patient:
[2019-02-07] MEDS: HEPARIN SOD 5,000 UNIT/0.5 ML VIAL SQ SCH ×2 (09:48→20:26)
--- NOTE | 2019-02-07 10:13 | Communication Note ---
Date of Service: February 07, 2019 Patient seen in late morning rounds for Del Valle and tethered ureteral stent removal. Del Valle and stent removed without difficulty. No resistance was met, timmy ent reported no pain or difficulty with removal.
[2019-02-07] MEDS: KETOROLAC TROMETHAMINE 15 MG/ML VIAL IV PRN ×3 (10:30→22:48)
[2019-02-07] MEDS ORDERED: HYDROCODONE/APAP 2.5MG/108MG ELIX 5 ML UDP PO PRN ×2 (11:32)
--- NOTE | 2019-02-07 11:40 | Surgery Progress Note ---
Date of Service February 07, 2019 Assessment & Plan (1) Retroperitoneal mass: pod 1. doing well will start clears. can try oral analgesics await bowel fx Subjective pt having surgical pain which is expected but otherwise doing well. Physical Exam Physical Exam: oob in chair. nad no resp distress abd: soft. expected tenderness. dressings in place/clean/dry Results & Data Vital Signs (Past 12 Hours) Vital Signs Temp Pulse Resp BP Pulse Ox 02/07/19 07:41 37.0 C 83 16 119/59 L 95 02/07/19 03:05 37.1 C 88 16 102/53 L 95 PG Care Time/CCT Total # of Minutes Spent Total Time Spent with Patient: Total time spent is greater than 50% in coordination of care (as documented) at patient's floor/unit and/or counseling patient:
[2019-02-08] MEDS ORDERED: COUGH DROP (SUGAR FREE) LOZ 24 LOZ/1 BOX BUCCAL ONE (01:23)
[2019-02-08] MEDS ORDERED: Nursing to Pharmacy Communication ONE (01:25)
[2019-02-08] MEDS ORDERED: COUGH DROP (SUGAR FREE) LOZ 24 LOZ/1 BOX BUCCAL PRN (01:29)
[2019-02-08] MEDS: LACTATED RINGER'S 1,000 ML IV SCH ×3 (05:44→21:25)
[2019-02-08 05:50] LABS: Basophils # (auto) 0.01 K/uL (0-0.2); Basophils % (auto) 0.1 %; Eosinophils # (auto) 0.02 K/uL (0-0.5); Eosinophils % (auto) 0.2 %; Hematocrit (blood only) 29.1 % (37-47); Hemoglobin 9.6 g/dL (12.0-16.0); Immature Granulocytes # (auto) 0.02 K/uL (0.00-0.02); Immature Granulocytes % (auto) 0.2 %; Lymphocytes # (auto) 1.32 K/uL (1.2-3.4); Lymphocytes % (auto) 15.7 %; Mean Corpuscular Hemoglobin 29.8 pg (25-34); Mean Corpuscular Volume 90.4 fL (80-100); Mean Platelet Volume 8.8 fL (7.4-10.4); Monocytes # (auto) 0.58 K/uL (0.11-0.59); Monocytes % (auto) 6.9 %; Neutrophils # (auto) 6.47 K/uL (1.4-6.5); Neutrophils % (auto) 76.9 %; Platelet Count 228 K/uL (130-400); RDW Coefficient of Variation 12.7 % (11.5-14.5); RDW Standard Deviation 42.5 fL (36.4-46.3); Red Blood Count 3.22 M/uL (4.2-5.4); White Blood Count 8.42 K/uL (4.8-10.8)
[2019-02-08 06:28] LABS: BUN Creatinine Ratio 9.9 (10-20); Calcium 8.5 mg/dl (8.5-10.1); Creatinine Clr Calc Pharmacy 61.4 ml/min; Est GFR (African American) 103.3; Est GFR (Non-African American) 89.1; Potassium 3.2 mmol/L (3.5-5.1)
[2019-02-08] MEDS: DOCUSATE SODIUM 100 MG CAP PO SCH ×2 (07:58→21:25)
[2019-02-08] MEDS: HEPARIN SOD 5,000 UNIT/0.5 ML VIAL SQ SCH ×2 (07:59→21:27)
[2019-02-08] MEDS: SERTRALINE HCL 100 MG TABLET PO SCH ×2 (07:59→10:00)
[2019-02-08] MEDS: MULTIVITAMIN TAB PO SCH (08:00)
[2019-02-08] MEDS: FAMOTIDINE 20 MG in SYRINGE 3 ML IV SCH (08:02)
[2019-02-08] MEDS: KETOROLAC TROMETHAMINE 15 MG/ML VIAL IV PRN ×2 (08:09→18:47)
--- NOTE | 2019-02-08 08:18 | Urology Progress Note ---
Date of Service February 08, 2019 Assessment & Plan (1) Retroperitoneal mass: POD#2 s/p excision of retroperitoneal mass w/ right colectomy - recovery on pace - cont clear liquids today - cont ambulation -labs appropriate - stent and catheter out yesterday Subjective continues to do well ambulating passing flatus tolerating clears pain tolerable Physical Exam Physical Exam: incisions appropriate abd soft, non-tender, non-distended Results & Data Vital Signs (Past 12 Hours) Vital Signs Temp Pulse Resp BP BP Pulse Ox 02/08/19 07:00 37.1 C 92 H 15 151/73 H 100 02/08/19 00:58 37.3 C 02/07/19 23:34 37.3 C 02/07/19 23:20 37.6 C H 02/07/19 22:53 37.9 C H 84 18 128/72 97 PG Care Time/CCT Total # of Minutes Spent Total Time Spent with Patient: Total time spent is greater than 50% in coordination of care (as documented) at patient's floor/unit and/or counseling patient:
--- NOTE | 2019-02-08 10:06 | Surgery Progress Note ---
Date of Service February 08, 2019 Assessment & Plan (1) Retroperitoneal mass: pod 2 doing as expected awaiting return of bowel function before regular diet. matti liquids pain control better today. Subjective pt seen. doing well. +flatus. matti liquids. pain control reasonable. Physical Exam Physical Exam: alert. nad abd: soft. incisions c/d/i. no drainage or sign of infection. expected tenderness. Results & Data Vital Signs (Past 12 Hours) Vital Signs Temp Pulse Resp BP BP Pulse Ox 02/08/19 07:00 37.1 C 92 H 15 151/73 H 100 02/08/19 00:58 37.3 C 02/07/19 23:34 37.3 C 02/07/19 23:20 37.6 C H 02/07/19 22:53 37.9 C H 84 18 128/72 97 PG Care Time/CCT Total # of Minutes Spent Total Time Spent with Patient: Total time spent is greater than 50% in coordination of care (as documented) at patient's floor/unit and/or counseling patient:
[2019-02-08] MEDS: FAMOTIDINE 20 MG TAB PO SCH (21:30)
[2019-02-09] MEDS: LACTATED RINGER'S 1,000 ML IV SCH (05:21)
[2019-02-09] MEDS: KETOROLAC TROMETHAMINE 15 MG/ML VIAL IV PRN (05:28)
[2019-02-09 06:41] LABS: Basophils # (auto) 0.01 K/uL (0-0.2); Basophils % (auto) 0.1 %; Eosinophils % (auto) 1.4 %; Hematocrit (blood only) 31.3 % (37-47); Immature Granulocytes # (auto) 0.01 K/uL (0.00-0.02); Immature Granulocytes % (auto) 0.1 %; Lymphocytes # (auto) 1.37 K/uL (1.2-3.4); Lymphocytes % (auto) 19.5 %; Mean Corpuscular Hgb Conc 31.9 g/dL (32-36); Mean Corpuscular Volume 90.7 fL (80-100); Monocytes # (auto) 0.43 K/uL (0.11-0.59); Monocytes % (auto) 6.1 %; Neutrophils # (auto) 5.12 K/uL (1.4-6.5); Neutrophils % (auto) 72.8 %; Platelet Count 260 K/uL (130-400); RDW Coefficient of Variation 12.7 % (11.5-14.5); RDW Standard Deviation 42.1 fL (36.4-46.3); Red Blood Count 3.45 M/uL (4.2-5.4); White Blood Count 7.04 K/uL (4.8-10.8)
[2019-02-09 07:15] LABS: BUN Creatinine Ratio 10.1 (10-20); Calcium 8.5 mg/dl (8.5-10.1); Creatinine Clr Calc Pharmacy 71.9 ml/min; Est GFR (African American) 115.6; Est GFR (Non-African American) 99.8
[2019-02-09] MEDS: FAMOTIDINE 20 MG TAB PO SCH (07:32)
[2019-02-09] MEDS: HEPARIN SOD 5,000 UNIT/0.5 ML VIAL SQ SCH (07:32)
[2019-02-09] MEDS: MULTIVITAMIN TAB PO SCH (07:33)
[2019-02-09] MEDS: DOCUSATE SODIUM 100 MG CAP PO SCH (07:33)
--- NOTE | 2019-02-09 07:56 | Urology Progress Note ---
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 - discussed pathology with the patient - will arrange outpt onc follow up Subjective continues to do very well ambulating without difficulty pain well controlled kidney function continues to improve several small BMs overnight no nausea, etc Physical Exam Physical Exam: incisions appropriate minimal bruising from the heparin Results & Data Vital Signs (Past 12 Hours) Vital Signs Temp Pulse Resp BP Pulse Ox 02/09/19 07:26 36.8 C 99 H 16 116/67 98 02/08/19 23:45 37 C 70 16 144/75 H 96 PG Care Time/CCT Total # of Minutes Spent Total Time Spent with Patient: Total time spent is greater than 50% in coordination of care (as documented) at patient's floor/unit and/or counseling patient:
[2019-02-09] MEDS ORDERED: ACETAMINOPHEN/CODEINE 120MG/12MG PER 5ML PO PRN (08:58)
[2019-02-09] MEDS ORDERED: POTASSIUM CHLORIDE 20 MEQ/15 ML UDC PO STA (09:08)
--- NOTE | 2019-02-09 09:11 | Surgery Progress Note ---
Date of Service February 09, 2019 Assessment & Plan (1) Retroperitoneal mass: POD 3 right colectomy low fiber lunch supplement K+ po ok for d/c if tolerates diet Subjective multiple loose BMs began yesterday, tolerating full liquids Physical Exam Gastrointestinal (Abdomen): Inspection/Auscultation: abdomen not distended Percussion/Palpation: abdomen soft Results & Data Vital Signs (Past 12 Hours) Vital Signs Temp Pulse Resp BP Pulse Ox 02/09/19 07:26 36.8 C 99 H 16 116/67 98 02/08/19 23:45 37 C 70 16 144/75 H 96 PG Care Time/CCT Total # of Minutes Spent Total Time Spent with Patient: Total time spent is greater than 50% in coordination of care (as documented) at patient's floor/unit and/or counseling patient:
[2019-02-09] MEDS: SERTRALINE HCL 100 MG TABLET PO SCH (09:12)
--- NOTE | 2019-02-16 07:42 | Discharge Summary ---
Date of Service February 16, 2019 Admission HPI Per Admitting Provider right retroperitoneal mass discovered in the midst of workup for right flank pain - preop biopsy leading to suspicion of leiomyoma - but planned surgical approach with possibility of a malignant pathology given size, location, and associated symptoms Principal Diagnosis leiomyosarcoma Discharge Data Allergies Allergy/AdvReac Type Severity Reaction Status Date / Time tetanus toxoid, adsorbed Allergy Severe swelling Verified 02/06/19 06:33 at injection site diphenhydramine AdvReac Intermediate heart Verified 02/06/19 06:33 racing epinephrine AdvReac Intermediate "heart Verified 02/06/19 06:33 goes really crazy" Consultations 02/06/19 13:36 Consult General Surgery Routine Procedures Performed Operation Date: 02/06/19 09:20 Actual Procedures s Cystoscopy, Right Ureteral Stent(Right) - Salomón Frye MD s with appendectomy - Farooq Lord DO p Excision of Retroperitoneal Mass,Partial colectomy,(Right) - Farooq Lord DO s Robotic Laparoscopic Operative - Salomón Frye MD Hospital Course (1) Leiomyosarcoma: Surgery as dictated in the operative report. In brief summary, she had a notable mass of the right retroperitoneum which was not adherent to the psoas mu scle, but was adherent to the posterior aspect of the mesentery to the colon. We were able to free it from the underlying ureter, but we did sacrifice a portion of the gonadal vessels which were traveling through the structure. Given the appearance of the mass and its close adherence to the mesentery, decision was made to resect the right-sided colon overlying the mass. Superior and distal aspects of our dissection were marked with clips. All palpable abnormality was removed. Her colon was reapproximated with the assistance of Dr. Lord from general surgery. She subsequently recovered extremely well from the surgery. She had gradual resumption of bowel function. She was ambulatory within 1 day of surgery. Her labs were stable. She was ultimately discharged home on day 3 in stable condition. We did review her pathology prior to discharge home. Total Time Total Time Spent Total Time Spent (In Minutes): 30 Total Time Includes: Examination of the Patient and Discharge Planning Discharge Plan Discharge Items Patient Disposition: Home - Self-Care Reason For Visit: Leiomyoma Discharge Diagnosis: leiomyosarcoma Condition on Discharge: Good Activity: Per Instructions section Lifting: No more than 10 pounds Bathing: No limitations Exercise/Sports: Wait until after follow-up appointment Driving/Machine Use: After follow up appointment Non-emergency contact: Urologist Call non-emergency contact if: you have any medication questions, your symptoms worsen, your pain is not controlled, your pain is worsening, you have a fever, your temperature is above 101.5, your wound has increased redness, your wound has increased drainage and your wound pain has increased Follow-up/Referrals: Farooq Lord, [Surgeon] - (Please schedule follow up in clinic within 1-2 weeks. You may call the clinic sooner if you have any questions/concerns.) Salomón Saldivar MD [Primary Care Provider] - Diet: Low Fiber Addtl Attending Provider Instructions: please keep your scheduled post op visit with Dr. Frye- please call if any issues prior to that appointment Pending Studies at Discharge: No Stand-Alone Forms: My [facility] [employer] Fund, Opioid Pain Management Medications and DC Order Prescriptions: New acetaminophen-codeine 120 mg-12 mg /5 mL (5 mL) solution 15 ml PO Q6H PRN (Reason: pain, initial therapy) Qty: 200 RF: 0 potassium chloride 20 mEq/15 mL liquid 20 meq PO BID Qty: 100 RF: 0 Continued multivitamin Tablet 1 tab PO QAM RF: 0 clonazepam [Klonopin] 0.5 mg Tablet 0.5 mg PO UD PRN (Reason: Anxiety) RF: 0 sertraline [Zoloft] 100 mg Tablet 100 mg PO QAM RF: 0 Discharge Orders: Discharge Order (Routine); Ordered 02/09/19 Ordered By: Salomón Ortiz/Other Patient Handouts: Cystoscopy, Appendectomy Laparoscopic Dc Admission Data Admit Date/Time: 02/06/19 11:27 Attending Provider: Salomón Frye Admit Provider: Salomón Frye Primary Care Provider: Salomón Saldivar Other Providers: Farooq Lord Other Interventions: Discharge Summary Assessment (RN) Last Done: 02/09/19 16:05 DC Date/Time DO NOT enter until pt leaves facility: 02/09/19 16:43
== END 2019-02-09 16:43 | disposition home or self-care (01) | DRG 827 ==
LOC: ASU 06:10 → 3N 11:27
DX: N13.1 Hydronephrosis with ureteral stricture, not elsewhere classified; F41.9 Anxiety disorder, unspecified; K55.9 Vascular disorder of intestine, unspecified; Z88.8 Allergy status to other drugs, medicaments and biological substances; C48.0 Malignant neoplasm of retroperitoneum; Z88.7 Allergy status to serum and vaccine; Z79.899 Other long term (current) drug therapy; Z53.31 Laparoscopic surgical procedure converted to open procedure